=== PATIENT | male | born 1955 | race Caucasian/White ===

== ENCOUNTER 2021-10-22 19:19 | Emergency (ER) | payer MEDICARE, OTHER, SELFPAY ==
[2021-10-22 19:34] VITALS: BP 175/77; PULSE 73; RESP 18; TEMP 36.5; O2SAT 99
--- NOTE | 2021-10-22 19:34 | ED.GENADULT ---
HPI - General Adult General Chief complaint: Unspecified Stated complaint: High Blood Pressure Time Seen by Provider: 10/22/21 19:51 Source: patient Mode of arrival: ambulatory Limitations: no limitations History of Present Illness HPI narrative: 65-year-old male with hx HTN, HLD presented for complaint of elevated blood pressure reading at home today. He endorses home reading of 170s over 80s today. He states he checks his blood pressure periodically, approximately every month. He denies any associated chest pain, palpitations, shortness of breath, dizziness, fatigue, nausea, vomiting or any concerns to cause him to take his blood pressure today. He is compliant with his medications. He is scheduled to see his PCP in December. Endorses eating more salty foods lately. Related Data Home Medications Medication Instructions Recorded Confirmed amlodipine 10/22/21 ezetimibe mg 10/22/21 fenofibrate nanocrystallized mg PO 10/22/21 metoprolol succinate PO 10/22/21 rosuvastatin mg 10/22/21 telmisartan mg 10/22/21 Allergies Allergy/AdvReac Type Severity Reaction Status Date / Time Penicillins Allergy Unknown Other Verified 10/22/21 19:26 simvastatin Allergy Unknown Other Verified 10/22/21 19:26 Review of Systems Review of Systems: CONSTITUTIONAL: Denies body aches, fever, chills, or sweats. EYES: Denies visual changes, redness, or discharge. ENT: Denies rhinorrhea, congestion, sore throat, or otalgia. CARDIOVASCULAR: Denies chest pain, palpitations, or edema. RESPIRATORY: Denies cough or dyspnea. GASTROINTESTINAL: Denies abdominal pain, nausea, vomiting, or diarrhea. GENITOURINARY: Denies dysuria or hematuria. SKIN: Denies rash, itching, or wounds. MUSCULOSKELETAL: Denies back pain, joint pain, or myalgia. NEUROLOGIC: Denies headache, numbness, tingling, or weakness. PSYCH: Denies depression or anxiety. All systems reviewed & are unremarkable except as noted in HPI and below [facility] Family History Family History Father Hypertension Cerebrovascular accident Social History Social History Smoking status: Never smoker Alcohol intake: current Comments At time of signature, I have reviewed and agree with nursing past medical, surgical, social and family history unless otherwise noted. Please see nursing chart for further information. There is no relevant family history pertinent to the presenting complaint Exam Narrative: GENERAL: Well-appearing, well-nourished, and in no acute distress. HEAD: Normocephalic, atraumatic. EYES: EOMI. No redness or drainage. Conjunctivae normal. ENT: Mucous membranes pink and moist. No rhinorrhea. TMs normal bilaterally. Throat normal. Uvula midline. NECK: Normal AROM. Supple. No lymphadenopathy. CHEST: No respiratory distress. Clear to auscultation. HEART: Regular rate and rhythm. No murmur appreciated. Normal peripheral pulses. ABDOMEN: Soft, nontender, nondistended, normal active bowel sounds. MUSCULOSKELETAL: No bony tenderness. EXTREMITIES: Normal range of motion. No edema. SKIN: Warm, dry, no rash. Capillary refill normal. Normal skin turgor. NEURO: No focal deficits. Alert and oriented x3. Gait steady. PSYCH: Normal affect. No signs of depression or anxiety. Course Course Emergency Course: Patient is aware of diagnosis, understands and agrees to treatment plan. Anticipatory guidance given. Patient agrees to follow-up as directed and is aware of reasons to seek care at the emergency department. Portions of this record may have been created with voice recognition software Level of Care: Express Care Visit Vital Signs Vital signs: Vital Signs Temperature 97.7 F 10/22/21 19:34 Pulse Rate 73 10/22/21 19:34 Respiratory Rate 18 10/22/21 19:34 Blood Pressure 175/77 H 10/22/21 19:34 Pulse Oximetry 99 10/22/21 19:34 Temperature 9
[2021-10-22 19:52] VITALS: BP 150/71
== END 2021-10-22 19:56 | disposition home or self-care (01) ==
PROVIDERS: Emergency Provider Nurse Practitioner Family
DX: I10 Essential (primary) hypertension (principal); E78.00 Pure hypercholesterolemia, unspecified
CPT/HCPCS: 99202; G0463

== ENCOUNTER 2023-09-16 08:08 | Emergency (ER) | payer MEDICARE, OTHER, SELFPAY ==
[2023-09-16] VITALS (16 sets, daily range): BP systolic 134–169; BP diastolic 63–79; PULSE 53–80; RESP 13–18; TEMP 36.4; O2SAT 96–100
--- NOTE | 2023-09-16 08:22 | ED.GENADULT ---
HPI - General Adult General Chief complaint: Recheck/Abnormal Lab/Rx Stated complaint: Elevated BP Time Seen by Provider: 09/16/23 08:10 History of Present Illness HPI narrative: 67-year-old male presents to the emergency department for evaluation of hypertension. Patient does have a known history of hypertension and does take amlodipine and metoprolol. Patient states his blood pressures typically run in the 120-130 systolic range. The patient states approximately 1 month ago he had his metoprolol decreased can see was feeling lightheaded. Patient dose this morning his blood pressure was elevated and was running in the 160 systolic range. Patient states when he woke up this morning he did have some mild lightheadedness but that has since resolved. At time of evaluation patient denies any complaints. Related Data Home Medications Medication Instructions Recorded Confirmed amlodipine 10 mg tablet 10 mg PO DAILY 10/22/21 10/22/21 ezetimibe 10 mg tablet 10 mg PO DAILY 10/22/21 10/22/21 fenofibrate nanocrystallized 145 145 mg PO DIRECTED 10/22/21 10/22/21 mg tablet metoprolol succinate 50 mg 150 mg PO HS 10/22/21 10/22/21 tablet,extended release 24 hr rosuvastatin 10 mg tablet 10 mg PO DAILY 10/22/21 10/22/21 telmisartan 40 mg tablet 40 mg PO DAILY 10/22/21 10/22/21 Allergies Allergy/AdvReac Type Severity Reaction Status Date / Time Penicillins Allergy Unknown Other Verified 09/16/23 08:16 simvastatin Allergy Unknown Other Verified 09/16/23 08:16 Review of Systems Review of Systems: All systems reviewed & are unremarkable except as noted in HPI and below [facility] Family History Family History Father Hypertension Cerebrovascular accident Social History Social History Smoking status: Never smoker Alcohol intake: current Exam Narrative: APPEARANCE: Well appearing, no pain, no distress, well-nourished. HEAD: normocephalic, atraumatic. EYES: PERRLA/EOMI, conjunctivae clear. NOSE: Normal no drainage NECK: Supple. No adenopathy, no masses. RESPIRATORY: Airway patent, respirations nonlabored. Clear to auscultation bilaterally, no rales, rhonchi, wheezing. CARDIOVASCULAR: Regular rate and rhythm without murmurs rubs or gallops. ABDOMINAL: Soft, nontender, nondistended, normal bowel sounds MUSCULOSKELETAL: Moves all extremities. Strength/ROM intact, No edema, No calf tenderness. NEURO: Alert. Cranial nerves II through XII intact. Grossly intact SKIN: Warm, dry. Normal Color Course Course Emergency Course: 67-year-old male present to the ED for evaluation of hypertension. Patient's blood pressure improved without additional medication in the ED. Vital Signs Vital signs: Vital Signs Temperature 97.5 F L 09/16/23 08:11 Pulse Rate 80 09/16/23 08:11 Respiratory Rate 13 09/16/23 08:11 Blood Pressure 169/79 H 09/16/23 08:11 Pulse Oximetry 100 09/16/23 08:11 Oxygen Delivery Room Air 09/16/23 08:11 Temperature 97.5 F L 09/16/23 08:11 Pulse Rate 58 L 09/16/23 09:30 Respiratory Rate 15 09/16/23 09:30 Blood Pressure 134/63 09/16/23 09:16 Pulse Oximetry 99 09/16/23 09:30 Oxygen Delivery Room Air 09/16/23 08:11 Medical Decision Making MDM Narrative Medical decision making narrative: 67-year-old male presenting to the emergency department for evaluation hypertension. Patient denied any complaint upon arrival to the emergency department. Patient's blood pressures were elevated with a systolic of 160s, this did improve while he was in the emergency department without further medication. Patient was afebrile with no leukocytosis and a stable hemoglobin 14.7. Normal kidney function with no proteinuria. Patient was encouraged to have close follow-up with primary care physician for further adjustments of his blood pressure medications. Patient did recently dec
[2023-09-16 08:46] LABS: Basophils Absolute Auto 0.1 K/mm3 (0.0-0.1); Basophils Percent Auto 1.1 % (0.2-1.2); Eosinophils Absolute Auto 0.6 K/mm3 (0-0.3); Eosinophils Percent Auto 7.2 % (0-4.4); Hematocrit 43.9 % (42.0-52.0); Hemoglobin 14.7 g/dL (14.0-18.0); Immature Granulocyte Absolute 0.05 K/mm3 (0.00-0.031); Immature Granulocyte Percent A 0.6 % (0-0.5); Lymphocytes Absolute Auto 2.25 K/mm3 (0.9-3.2); Lymphocytes Percent Auto 26.5 % (18.3-44.2); Mean Corpuscular HGB Conc 33.5 g/dl (32-36); Mean Corpuscular Hemoglobin 29.1 pg (26-34); Mean Corpuscular Volume 86.8 fl (80-100); Mean Platelet Volume 10.2 fl (7.4-10.4); Monocytes Absolute Auto 0.8 K/mm3 (0.1-0.6); Neutrophils Absolute Auto 4.7 K/mm3 (1.3-6.7); Neutrophils Percent Auto 55.6 % (45.5-73.1); Platelet Count Result 230 k/mm3 (150-375); Red Blood Count 5.06 M/mm3 (4.6-6.20); Red Cell Distribution Width 13.1 % (11.5-14.5); White Blood Count 8.5 K/mm3 (4.5-10.0)
[2023-09-16 08:52] LABS: Appearance Urine Clear (Clear); Bilirubin Urine Negative (Negative); Blood Urine Negative (Negative); Color Urine Yellow (Yellow); Glucose Urine UA Negative (Negative); Ketones Urine Negative (Negative); Leukocyte Esterase Ur Negative LEU/UL (Negative); Nitrate Urine Negative (Negative); Protein Urine Negative (Negative); Urobilinogen Urine 0.2 mg/dL (<2.0)
[2023-09-16 08:55] LABS: Alanine Aminotransferase 32 U/L (6-50); Albumin Level 4.7 g/dL (3.5-5.1); Alkaline Phosphatase 52 U/L (38-126); Anion Gap 9 mmol/L (8-16); Aspartate Amino Transferase 40 U/L (17-59); Bilirubin,Total 0.6 mg/dL (0.2-1.3); Blood Urea Nitrogen 18 mg/dL (9-20); Carbon Dioxide 25 mmol/L (22-30); Chloride 105 mmol/L (98-107); Estimated CRCL calculation 72 ml/min; Estimated Glomerular Filt Rate > 60; Glucose 113 mg/dL (65-110); Potassium 3.6 mmol/L (3.4-5.0); Sodium 139 mmol/L (137-145)
[2023-09-16 09:05] LABS: Add Urine Microscopic? NO
== END 2023-09-16 09:36 | disposition home or self-care (01) ==
PROVIDERS: Emergency Provider Emergency Medicine; PCP Family Medicine
DX: I10 Essential (primary) hypertension (principal)
CPT/HCPCS: 36415; 80053; 81003; 85025; 99283